=== PATIENT | male | born 1960 | race Caucasian/White ===

== ENCOUNTER 2020-03-16 10:12 | Emergency (ER) | payer MEDICAID ==
[~2020-03-16] VITALS: Ht 175.3 cm; Wt 120.2 kg
[2020-03-16 10:12] VITALS: BP_SYST 226
--- NOTE | 2020-03-16 10:12 | NUR ---
Patient to ER bed 1 to gown for evaluation. Side rails up. Report given to JORGE LUIS Thornton.
--- NOTE | 2020-03-16 10:15 | NUR ---
Note shawna in EDM - 03/16/20 at 1806 by ERNIE # 16 FR Gonzalez catheter with use of sterile technique. Immediate return of 1000 cc yellow urine noted. Bedside drainage bag placed below level of bladder. Urine sample collected and sent to lab. Pt tolerated procedure well. Patient unable to toilet self.
--- NOTE | 2020-03-16 10:15 | NUR ---
Patient presented to ER C/O abdominal pain. Patient A&Ox4, ambulatory to ER, afebrile, skin pink & warm pain 05/07, denies N/V/D. Patient states he is constipated and unable to urinate since this morning at 0300.
--- NOTE | 2020-03-16 10:17 | NUR ---
ER Dr. Alarcon at bedside examining patient.
--- NOTE | 2020-03-16 11:15 | NUR ---
# 16 FR Gonzalez catheter with use of sterile technique. Immediate return of 1000 cc yellow urine noted. Bedside drainage bag placed below level of bladder. Urine sample collected and sent to lab. Pt tolerated procedure well. Patient unable to toilet self.
[2020-03-16 11:51] VITALS: BP_SYST 186
--- NOTE | 2020-03-16 11:52 | NUR ---
Patient given written and verbal discharge instructions and verbalizes understanding. ER MD discussed with patient the results and treatment provided. Patient in stable condition. ID arm band removed. Rx of golytley, miralax,tramadol given. Patient educated on pain management and to follow up with PMD. Pain Scale 2/10. Opportunity for questions provided and answered. Medication side effect fact sheet provided.
== END 2020-03-16 11:52 | disposition home or self-care (01) ==
LOC: SED 10:12
DX: R33.9 Retention of urine, unspecified (principal)
CPT/HCPCS: 81002; 99284

== ENCOUNTER 2020-03-16 20:19 | Emergency (ER) | payer MEDICAID ==
[~2020-03-16] VITALS: Ht 175.3 cm; Wt 120.2 kg
[2020-03-16 20:20] VITALS: BP_SYST 210
--- NOTE | 2020-03-16 21:35 | NUR ---
Patient to ER bed 01 to gown for evaluation. Side rails up. Report given to serg willoughby
--- NOTE | 2020-03-16 21:50 | NUR ---
ER Dr. Flores at bedside examining patient.
--- NOTE | 2020-03-16 21:51 | NUR ---
pt c/o of lower abdominal pain 8/ from not being able to urinate and being constipated. pt here earlier today for urine retention, they placed a catheter and 2000cc emptied. since pt left, urine has not emptied into the catheter bag. pt denies n/v, fever
--- NOTE | 2020-03-16 22:00 | NUR ---
Patient transported to radiology via ambulated, accompanied by elieser.
--- NOTE | 2020-03-16 22:15 | NUR ---
irrigated proctor catheter with a total of 100cc of normal saline with no return of urine. aware.
--- NOTE | 2020-03-16 22:31 | NUR ---
# 16 FR coude Proctor catheter with use of sterile technique. Immediate return of 150 cc dark clear yellow urine noted. Bedside drainage bag placed below level of bladder. Urine sample collected and sent to lab. Pt tolerated procedure well. Patient arrived with proctor in place, changed due to standard of practice prior to admission. Patient unable to toilet self.
[2020-03-16] MEDS ORDERED: KETOROLAC TROMETHAMINE 60 MG/2 ML VIAL IM ONE (23:30)
--- NOTE | 2020-03-16 23:35 | NUR ---
pt complaining of 8/10 pain in lower abdomen. md notified.
[2020-03-17 00:01] VITALS: BP_SYST 177
--- NOTE | 2020-03-17 00:01 | NUR ---
Patient given written and verbal discharge instructions and verbalizes understanding. ER MD discussed with patient the results and treatment provided. Patient in stable condition. ID arm band removed. Rx of mineral oil given. Patient educated on pain management and to follow up with PMD. Pain Scale 5/10. Opportunity for questions provided and answered. Medication side effect fact sheet provided.
== END 2020-03-17 00:01 | disposition home or self-care (01) ==
LOC: SED 20:19
DX: R33.9 Retention of urine, unspecified (principal); K59.00 Constipation, unspecified; F17.290 Nicotine dependence, other tobacco product, uncomplicated; Z71.6 Tobacco abuse counseling
CPT/HCPCS: 74018; 81002; 96372; 99283; J1885

== ENCOUNTER 2020-03-19 10:53 | Emergency (ER) | payer MEDICAID ==
[~2020-03-19] VITALS: Ht 175.3 cm; Wt 111.1 kg
[2020-03-19 11:10] VITALS: BP_SYST 189
--- NOTE | 2020-03-19 11:10 | NUR ---
Patient to ER bed 03 to gown for evaluation. Side rails up.
--- NOTE | 2020-03-19 11:20 | NUR ---
pt arrives from home for a proctor cath removal. No other c/o at the moment
--- NOTE | 2020-03-19 11:22 | NUR ---
ER at bedside examining patient.
--- NOTE | 2020-03-19 11:30 | NUR ---
proctor cath removed pt tolerated well.
[2020-03-19 11:35] VITALS: BP_SYST 189
--- NOTE | 2020-03-19 11:35 | NUR ---
Patient given written and verbal discharge instructions and verbalizes understanding. ER MD discussed with patient the results and treatment provided. Patient in stable condition. ID arm band removed. Patient educated on pain management and to follow up with PMD. Pain Scale 0/10. Opportunity for questions provided and answered. Medication side effect fact sheet provided.
== END 2020-03-19 11:35 | disposition home or self-care (01) ==
LOC: SED 10:53
DX: R32 Unspecified urinary incontinence (principal); I10 Essential (primary) hypertension; E11.9 Type 2 diabetes mellitus without complications
CPT/HCPCS: 99281